=== PATIENT | female | born 1945 | race Hispanic/Latino ===

== ENCOUNTER 2017-09-25 08:06 | Outpatient (CLI) | payer MEDICARE ==
--- NOTE | 2017-09-25 09:06 | Mammography Report ---
BILATERAL MAMMOGRAM: FINDINGS: The breast tissue is heterogeneously dense, which could obscure detection of small masses (approximately 50%-75% glandular). No mass, distortion, suspicious calcification, or skin change is seen. No significant change when compared to her prior exam in July 2016. CAD was utilized. IMPRESSION: Negative mammogram. There is no mammographic evidence of malignancy. RECOMMENDATION: Follow-up per ACS guidelines. BI-RADS CATEGORY: 1 = Negative ACR BI-RADS MAMMOGRAPHIC CODES: 0 = Needs additional imaging evaluation; 1 = Negative; 2 = Benign; 3 = Probably benign; 4 = Suspicious; 5 = Malignant; 6 = Known biopsy-proven malignancy COMMENT: 1. Dense breast tissue, i.e., adenosis, fibrocystic changes, etc., may obscure an underlying neoplasm. 2. Approximately 10% of cancers are not detected with mammography. 3. A negative mammography report should not delay biopsy if a clinically suspicious mass is present. COMMENT: Patient follow-up letters are generated in [employer].
== END 2017-09-25 08:07 | disposition home or self-care (01) ==
LOC: SPVWC 08:06
PROVIDERS: ATTEND Family Medicine
DX: Z12.31 Encounter for screening mammogram for malignant neoplasm of breast (principal)
CPT/HCPCS: 77067

== ENCOUNTER 2018-09-27 08:41 | Outpatient (CLI) | payer MEDICARE ==
--- NOTE | 2018-09-27 14:04 | Mammography Report ---
BILATERAL DIGITAL SCREENING MAMMOGRAM with CAD: 09/27/18 08:41:00 CLINICAL: Routine screening. COMPARISON:09/25/17 and 07/28/16 FINDINGS: The breasts are heterogeneously dense, which may obscure small masses. Bilateral retroareolar asymmetries require additional imaging.No architectural distortion or suspicious calcifications. IMPRESSION: Bilateral asymmetries requiring further workup. BI-RADS CATEGORY: 0 -- Additional Imaging Evaluation Required RECOMMENDATION: Recall for bilateral spot magnification nipple views and bilateral breast ultrasound if needed. ACR BI-RADS MAMMOGRAPHIC CODES: 0 = Needs additional imaging evaluation; 1 = Negative; 2 = Benign; 3 = Probably benign; 4 = Suspicious; 5 = Malignant; 6 = Known biopsy-proven malignancy COMMENT: 1. Dense breast tissue, i.e., adenosis, fibrocystic changes, etc., may obscure an underlying neoplasm. 2. Approximately 10% of cancers are not detected with mammography. 3. A negative mammography report should not delay biopsy if a clinically suspicious mass is present. COMMENT: Patient follow-up letters are generated via our [employer] application.
== END 2018-09-27 08:42 | disposition home or self-care (01) ==
LOC: SPVWC 08:41
PROVIDERS: ATTEND Family Medicine
DX: Z12.31 Encounter for screening mammogram for malignant neoplasm of breast (principal)
CPT/HCPCS: 77067

== ENCOUNTER 2018-10-31 08:44 | Outpatient (CLI) | payer MEDICARE ==
--- NOTE | 2018-10-31 10:07 | Mammography Report ---
BILATERAL DIGITAL DIAGNOSTIC MAMMOGRAM and BILATERAL BREAST ULTRASOUND: 10/31/18 08:44:00 CLINICAL: Recalled for bilateral asymmetries. COMPARISON:09/27/18 screening FINDINGS: Bilateral retroareolar spot magnification views were performed and bilateral circumscribed asymmetries persist. Ultrasound of the retroareolar right breast demonstrated an oval solid heterogeneous hypoechoic mass which appears to communicate with a duct. It measures 6 x 4 x 6 mm and produces mild posterior enhancement. A cluster of tiny cysts at 12 o'clock 1 cm from the nipple measures 5 x 5 x 3 mm. Ultrasound of the retroareolar left breast demonstrated a benign cyst at 2 o'clock 1 cm from the nipple measuring 5 x 3 x 4 mm and a benign cluster of tiny cysts at 3 o'clock 1 cm from the nipple measuring 6 x 2 x 2 mm. IMPRESSION: 1. A suspicious 6 mm right retroareolar solid mass. Recommend ultrasound-guided vacuum-assisted needle core biopsy of the mass.2. A few tiny bilateral benign retroareolar cysts. 3. Recommend routine screening of the left breast. BI-RADS CATEGORY: 4--Suspicious I discussed the findings and the recommendation for needle core biopsy of the right breast with the patient at the time of the examination. COMMENT: 1. Dense breast tissue, i.e., adenosis, fibrocystic changes, etc., may obscure an underlying neoplasm. 2. Approximately 10% of cancers are not detected with mammography. 3. A negative mammography report should not delay biopsy if a clinically suspicious mass is present. COMMENT: Patient follow-up letters are generated via our [employer] application.
== END 2018-10-31 08:45 | disposition home or self-care (01) ==
LOC: SPVWC 08:44
PROVIDERS: ATTEND Family Medicine
DX: N60.01 Solitary cyst of right breast (principal); N60.02 Solitary cyst of left breast
CPT/HCPCS: 77066

== ENCOUNTER 2018-11-13 07:51 | Outpatient (CLI) | payer MEDICARE ==
--- NOTE | 2018-11-13 09:05 | Mammography Report ---
RIGHT DIGITAL DIAGNOSTIC MAMMOGRAM: 11/13/18 07:51:00 CLINICAL: For clip placement after cyst aspiration. COMPARISON:10/31/18 FINDINGS: A retroareolar biopsy clip is identified in a previously identified retroareolar oval circumscribed density is no longer present. IMPRESSION: Concordant clip placement status post ultrasound-guided cyst aspiration. BI-RADS CATEGORY: 4--Suspicious Cytology pending.
--- NOTE | 2018-11-13 09:08 | Ultrasound Report ---
ULTRASOUND GUIDED CYST ASPIRATION RIGHT BREAST: 11/13/18 08:30:00 CLINICAL: Retroareolar mass. COMPARISON: 10/31/18 FINDINGS: The procedure was explained to the patient and informed consent was obtained. Ultrasound demonstrated the previously described retroareolar mass measuring 6 mm. The skin was cleansed with Betadine and anesthetized with 1% lidocaine. A 20-gauge needle was introduced into the lesion with ultrasound guidance. Less than 1 cc of serosanguineous fluid was aspirated and the lesion showed near-complete collapse. A localizer clip was placed within it. The fluid was placed in Cyt[employer]te and sent to the lab for analysis. The patient tolerated the procedure well and there were no apparent complications. A two-view mammogram demonstrated satisfactory clip deployment and resolution of a retroareolar circumscribed density. IMPRESSION: Uncomplicated cyst aspiration right breast.
== END 2018-11-13 07:52 | disposition home or self-care (01) ==
LOC: SPVWC 07:51
PROVIDERS: ATTEND Family Medicine
DX: N63.10 Unspecified lump in the right breast, unspecified quadrant (principal); Z88.6 Allergy status to analgesic agent; Z88.2 Allergy status to sulfonamides; Z79.899 Other long term (current) drug therapy; Z79.82 Long term (current) use of aspirin; Z87.891 Personal history of nicotine dependence; Z88.8 Allergy status to other drugs, medicaments and biological substances
CPT/HCPCS: 88112